=== PATIENT | male | born 1955 | race Asian ===

== ENCOUNTER 2016-08-10 11:29 | Emergency (ER) | payer OTHER ==
[~2016-08-10] VITALS: Ht 188 cm; Wt 77.1 kg
[~2016-08-10 11:29] MED LIST: AMBIEN5 MG PO; HYDR10TA47A PO; LISI10TA11 PO; TAMS0.4C PO
[2016-08-10 11:59] LABS: PLATELET COUNT 174 K/uL (142-355)
[2016-08-10 12:07] LABS: SODIUM 140 mmol/L (136-145)
[2016-08-10 13:19] VITALS: BP 161/98; TEMP 98
== END 2016-08-10 13:29 | disposition home or self-care (01) ==
LOC: ED 11:29
DX: R30.0 Dysuria (principal)
CPT/HCPCS: 36415; 80053; 81000; 85027; 96374; 99283; J1885

== ENCOUNTER 2016-09-16 08:58 | Emergency (ER) | payer OTHER ==
[~2016-09-16] VITALS: Ht 188 cm; Wt 76.7 kg
[2016-09-16 11:08] VITALS: BP 170/90; TEMP 98.1
== END 2016-09-16 11:09 | disposition home or self-care (01) ==
LOC: ED 08:58
DX: M25.552 Pain in left hip (principal); T84.021A Dislocation of internal left hip prosthesis, initial encounter
CPT/HCPCS: 96372; 99283; J1885; J2405

== ENCOUNTER 2016-12-08 22:19 | Emergency (ER) | payer OTHER ==
[~2016-12-08] VITALS: Ht 188 cm; Wt 73.5 kg
[2016-12-08 23:10] LABS: PLATELET COUNT 256 K/uL (142-355)
[2016-12-08 23:22] LABS: POTASSIUM 3.8 mmol/L (3.6-5.2); SODIUM 139 mmol/L (136-145)
[2016-12-08 23:45] VITALS: BP 176/99; TEMP 98.1
== END 2016-12-08 23:47 | disposition home or self-care (01) ==
LOC: ED 22:19
DX: K29.60 Other gastritis without bleeding (principal); B96.81 Helicobacter pylori [H. pylori] as the cause of diseases classified elsewhere; I10 Essential (primary) hypertension; F14.10 Cocaine abuse, uncomplicated
CPT/HCPCS: 80053; 80307; 81000; 82150; 83690; 85027; 86318; 99283; G0479

== ENCOUNTER 2017-03-13 10:43 | Emergency (ER) | payer OTHER ==
[~2017-03-13] VITALS: Ht 188 cm; Wt 77.1 kg
[2017-03-13 10:50] VITALS: TEMP 98.7
[2017-03-13 11:50] VITALS: BP 168/96
== END 2017-03-13 12:00 | disposition home or self-care (01) ==
LOC: ED 10:43
DX: S00.83XA Contusion of other part of head, initial encounter (principal); S70.02XA Contusion of left hip, initial encounter; W01.198A Fall on same level from slipping, tripping and stumbling with subsequent striking against other object, initial encounter; Y92.098 Other place in other non-institutional residence as the place of occurrence of the external cause
CPT/HCPCS: 99283; J1885

== ENCOUNTER 2017-05-01 05:52 | Emergency (ER) | payer OTHER ==
[~2017-05-01] VITALS: Ht 185.4 cm; Wt 77.1 kg
[2017-05-01 06:15] VITALS: BP 185/87; TEMP 98.2
[2017-05-01] MEDS ORDERED: CARV3.12 PO (06:32)
== END 2017-05-01 07:04 | disposition home or self-care (01) ==
LOC: ED 05:52
DX: R05 Cough (principal); R50.9 Fever, unspecified; J02.9 Acute pharyngitis, unspecified

== ENCOUNTER 2017-10-12 10:34 | Emergency (ER) | payer OTHER ==
[~2017-10-12] VITALS: Ht 188 cm; Wt 79.4 kg
[~2017-10-12 10:34] MED LIST changes: +CARV3.12 PO
[2017-10-12 11:11] LABS: PLATELET COUNT 206 K/uL (142-355)
[2017-10-12 11:19] LABS: POTASSIUM 3.7 mmol/L (3.6-5.2); SODIUM 140 mmol/L (136-145)
[2017-10-12 17:14] VITALS: BP 158/71; TEMP 98.1
== END 2017-10-12 17:17 | disposition other institution (70) ==
LOC: ED 10:34
DX: R45.851 Suicidal ideations (principal); F14.10 Cocaine abuse, uncomplicated; F13.10 Sedative, hypnotic or anxiolytic abuse, uncomplicated; R00.0 Tachycardia, unspecified
CPT/HCPCS: 36415; 80053; 80307; 80320; 80329; 81000; 82550; 82553; 84484; 85027; 93005; 99285

== ENCOUNTER 2018-02-01 10:20 | Emergency (ER) | payer OTHER ==
[~2018-02-01] VITALS: Ht 188 cm; Wt 77.1 kg
[2018-02-01] MEDS ORDERED: CARV25TA PO (10:43)
[2018-02-01 13:38] VITALS: BP 168/89; TEMP 98.1
== END 2018-02-01 13:18 | disposition home or self-care (01) ==
LOC: ED 10:20
PROC: 2W3LX1Z Immobilization of Right Lower Extremity using Splint (ICD-10-PCS; principal; 2018-02-01)
PROC: 0S9C3ZZ Drainage of Right Knee Joint, Percutaneous Approach (ICD-10-PCS; 2018-02-01)
DX: S83.8X1A Sprain of other specified parts of right knee, initial encounter (principal); M25.061 Hemarthrosis, right knee; W18.39XA Other fall on same level, initial encounter; Y92.89 Other specified places as the place of occurrence of the external cause
CPT/HCPCS: 96372; 99284; J1885; L1830

== ENCOUNTER 2018-02-04 14:21 | Emergency (ER) | payer OTHER ==
[~2018-02-04] VITALS: Ht 188 cm; Wt 77.1 kg
[~2018-02-04 14:21] MED LIST changes: +CARV25TA PO
[2018-02-04 14:25] VITALS: TEMP 97.7
[2018-02-04 16:21] VITALS: BP 151/98
== END 2018-02-04 16:20 | disposition home or self-care (01) ==
LOC: ED 14:21
PROC: 0S9C3ZZ Drainage of Right Knee Joint, Percutaneous Approach (ICD-10-PCS; principal; 2018-02-04)
DX: M25.461 Effusion, right knee (principal); M23.8X1 Other internal derangements of right knee
CPT/HCPCS: 99283

== ENCOUNTER 2018-04-15 14:41 | Emergency (ER) | payer OTHER ==
[~2018-04-15] VITALS: Ht 188 cm; Wt 79.4 kg
[2018-04-15 14:55] VITALS: BP 154/96; TEMP 99
[2018-04-15 15:16] LABS: PLATELET COUNT 145 K/uL (142-355)
[2018-04-15 15:26] LABS: POTASSIUM 4.2 mmol/L (3.6-5.2); SODIUM 143 mmol/L (136-145)
== END 2018-04-15 17:59 | disposition left against medical advice (07) ==
LOC: ED 14:41
PROVIDERS: Emergency Medicine
PROC: 0S9C3ZZ Drainage of Right Knee Joint, Percutaneous Approach (ICD-10-PCS; principal; 2018-04-15)
DX: M25.461 Effusion, right knee (principal); R07.89 Other chest pain; R00.0 Tachycardia, unspecified
CPT/HCPCS: 36415; 80053; 82550; 82553; 84484; 85027; 85379; 93005; 99284

== ENCOUNTER 2018-05-07 01:40 | Emergency (ER) | payer OTHER ==
[~2018-05-07] VITALS: Ht 188 cm; Wt 79.4 kg
[2018-05-07 01:40] VITALS: TEMP 98.6
[2018-05-07] MEDS ORDERED: ABACAVIR SULFAT1 TAB PO (01:58)
[2018-05-07] MEDS ORDERED: CARV25TA PO (01:58)
[2018-05-07 02:53] LABS: PLATELET COUNT 155 K/uL (142-355)
[2018-05-07 03:10] LABS: POTASSIUM 4.3 mmol/L (3.6-5.2)
[2018-05-07 07:30] VITALS: BP 147/77
== END 2018-05-07 12:20 | disposition other institution (70) ==
LOC: ED 01:40
PROVIDERS: Emergency Medicine
DX: T14.91XA Suicide attempt, initial encounter (principal); F28 Other psychotic disorder not due to a substance or known physiological condition
CPT/HCPCS: 36415; 80053; 80307; 80320; 80329; 81000; 85027; 93005; 99285

== ENCOUNTER 2018-08-20 09:19 | Emergency (ER) | payer OTHER ==
[~2018-08-20] VITALS: Ht 188 cm; Wt 82.1 kg
[~2018-08-20 09:19] MED LIST changes: +ABACAVIR SULFAT1 TAB PO
[2018-08-20 09:27] VITALS: TEMP 97.7
[2018-08-20] MEDS ORDERED: CARV12.5 PO (09:54)
[2018-08-20] MEDS ORDERED: TAMSULOSIN0.4 MG PO (09:54)
[2018-08-20] MEDS ORDERED: QUETIAPINE100 MG PO (09:55)
[2018-08-20] MEDS ORDERED: ALPR0.5T24 PO (09:56)
[2018-08-20 10:02] LABS: PLATELET COUNT 143 K/uL (142-355)
[2018-08-20 10:15] LABS: POTASSIUM 3.7 mmol/L (3.6-5.2); SODIUM 142 mmol/L (136-145)
[2018-08-20 13:05] VITALS: BP 125/73
== END 2018-08-20 13:14 | disposition home or self-care (01) ==
LOC: ED 09:19
PROVIDERS: Family Medicine
DX: R07.89 Other chest pain (principal); J32.8 Other chronic sinusitis; I10 Essential (primary) hypertension; R42 Dizziness and giddiness
CPT/HCPCS: 36415; 80053; 82550; 84484; 85027; 85379; 93005; 96374; 99284; J0360

== ENCOUNTER 2019-01-28 13:16 | Observation (INO) | payer OTHER ==
[~2019-01-28] VITALS: Ht 188 cm; Wt 84.1 kg
[~2019-01-28 13:16] MED LIST changes: +ALPR0.5T24 PO; +CARV12.5 PO; +QUETIAPINE100 MG PO; +TAMSULOSIN0.4 MG PO
[2019-01-28 13:26] VITALS: BP 191/115; TEMP 97.5
[2019-01-28 13:40] LABS: PLATELET COUNT 144 K/uL (142-355)
[2019-01-28 13:52] LABS: POTASSIUM 4.3 mmol/L (3.6-5.2); SODIUM 138 mmol/L (136-145)
[2019-01-28 13:55] LABS: PARTIAL THROMBOPLASTIN TIME 26.7 SECONDS (24.5-33.6)
[2019-01-28 14:54] VITALS: BP 169/95
[2019-01-28 15:52] VITALS: BP 178/95; TEMP 98.7; Ht 188 cm; Wt 84.1 kg
[2019-01-28 20:00] VITALS: BP 183/93; TEMP 98.2
[2019-01-29] VITALS: BP 116/59; TEMP 98.2
[2019-01-29 04:00] VITALS: BP 137/76; TEMP 97.9
[2019-01-29 08:30] VITALS: BP 151/92; TEMP 98.4
[2019-01-29 12:00] VITALS: BP 126/90; TEMP 98.5
== END 2019-01-29 15:50 | disposition home or self-care (01) ==
LOC: ED 13:16 → MED/SURG 14:50
PROVIDERS: Student in an Organized Health Care Education/Training Program; ADMIT Internal Medicine
DX: R07.89 Other chest pain (principal); I10 Essential (primary) hypertension; R06.02 Shortness of breath; N40.0 Benign prostatic hyperplasia without lower urinary tract symptoms; Z79.899 Other long term (current) drug therapy
CPT/HCPCS: 36415; 80053; 80307; 81000; 82550; 82553; 83874; 84439; 84443; 84484; 85027; 85610; 85730; 93005; 96374; 96375; 99220; 99284; G0378; J0360; J2270; J2550

== ENCOUNTER 2019-03-23 08:52 | Outpatient (CLI) | payer OTHER | END 2019-03-23 23:59 | LOC: CT 08:52 | DX: R20.2 Paresthesia of skin (principal) ==

== ENCOUNTER 2019-04-29 09:32 | Emergency (ER) | payer OTHER ==
[~2019-04-29] VITALS: Ht 188 cm; Wt 83.9 kg
[2019-04-29 09:42] VITALS: TEMP 98
[2019-04-29] MEDS ORDERED: HYDR10TA47 PO (09:55)
[2019-04-29 10:33] VITALS: BP 155/91
== END 2019-04-29 10:33 | disposition home or self-care (01) ==
LOC: ED 09:32
PROC: 0S9C0ZZ Drainage of Right Knee Joint, Open Approach (ICD-10-PCS; principal; 2019-04-29)
DX: M25.461 Effusion, right knee (principal)
CPT/HCPCS: 87070; 87205; 99283

== ENCOUNTER 2019-05-06 05:12 | Emergency (ER) | payer OTHER ==
[~2019-05-06] VITALS: Ht 188 cm; Wt 83.9 kg
[~2019-05-06 05:12] MED LIST changes: +HYDR10TA47 PO
[2019-05-06 05:27] VITALS: TEMP 99
[2019-05-06 05:44] LABS: PLATELET COUNT 156 K/uL (142-355)
[2019-05-06 05:54] LABS: POTASSIUM 3.8 mmol/L (3.6-5.2)
[2019-05-06 10:00] VITALS: BP 142/93
== END 2019-05-06 10:00 | disposition other institution (70) ==
LOC: ED 05:12
PROVIDERS: Emergency Medicine
DX: K85.80 Other acute pancreatitis without necrosis or infection (principal)
CPT/HCPCS: 80053; 80307; 80320; 80329; 81000; 82550; 82553; 84484; 85027; 93005; 99285

== ENCOUNTER 2019-06-19 10:52 | Emergency (ER) | payer OTHER ==
[~2019-06-19] VITALS: Ht 188 cm; Wt 81.6 kg
[2019-06-19 11:36] LABS: PLATELET COUNT 194 K/uL (142-355)
[2019-06-19 11:43] LABS: POTASSIUM 4.8 mmol/L (3.6-5.2)
[2019-06-19 15:25] VITALS: BP 160/95; TEMP 98.7
== END 2019-06-19 15:27 | disposition other institution (70) ==
LOC: ED 10:52
PROVIDERS: Emergency Medicine
DX: R45.851 Suicidal ideations (principal); F32.89 Other specified depressive episodes; F14.10 Cocaine abuse, uncomplicated; R00.0 Tachycardia, unspecified
CPT/HCPCS: 36415; 80053; 80307; 80320; 80329; 81000; 85027; 93005; 99285

== ENCOUNTER 2019-09-29 03:35 | Emergency (ER) | payer OTHER ==
[~2019-09-29] VITALS: Ht 188 cm; Wt 68.0 kg
[2019-09-29 04:41] LABS: POTASSIUM 3.9 mmol/L (3.6-5.2)
[2019-09-29 04:48] LABS: PLATELET COUNT 120 K/uL (142-355)
[2019-09-29 07:30] VITALS: TEMP 98
[2019-09-29] MEDS ORDERED: TRAZ50TA36 PO (11:07)
[2019-09-29 12:45] VITALS: BP 154/81
== END 2019-09-29 12:45 | disposition other institution (70) ==
LOC: ED 03:35
PROVIDERS: Student in an Organized Health Care Education/Training Program
DX: R45.851 Suicidal ideations (principal); F19.10 Other psychoactive substance abuse, uncomplicated
CPT/HCPCS: 36415; 80053; 80307; 80320; 80329; 81000; 85027; 93005; 99285

== ENCOUNTER 2019-12-04 09:42 | Emergency (ER) | payer OTHER ==
[~2019-12-04] VITALS: Ht 188 cm; Wt 81.6 kg
[~2019-12-04 09:42] MED LIST changes: +TRAZ50TA36 PO
[2019-12-04 10:20] VITALS: TEMP 97.7
[2019-12-04 10:39] LABS: PLATELET COUNT 172 K/uL (142-355)
[2019-12-04 10:45] LABS: POTASSIUM 4.4 mmol/L (3.6-5.2); SODIUM 141 mmol/L (136-145)
[2019-12-04] MEDS ORDERED: TRICOR145 M1 PO (11:36)
[2019-12-04 13:30] VITALS: BP 142/98
== END 2019-12-04 14:15 | disposition other institution (70) ==
LOC: ED 09:42
PROVIDERS: Emergency Medicine
DX: R45.851 Suicidal ideations (principal); T14.91XA Suicide attempt, initial encounter; I10 Essential (primary) hypertension; Y92.89 Other specified places as the place of occurrence of the external cause
CPT/HCPCS: 80053; 80307; 80320; 80329; 81000; 85027; 93005; 99285

== ENCOUNTER 2020-01-06 10:09 | Emergency (ER) | payer OTHER ==
[~2020-01-06] VITALS: Ht 188 cm; Wt 81.6 kg
[~2020-01-06 10:09] MED LIST changes: +TRICOR145 M1 PO
[2020-01-06 10:35] LABS: PLATELET COUNT 199 K/uL (142-355)
[2020-01-06 10:45] LABS: POTASSIUM 3.8 mmol/L (3.6-5.2)
[2020-01-06 13:20] VITALS: BP 110/71; TEMP 98
== END 2020-01-06 13:20 | disposition other institution (70) ==
LOC: ED 10:09
PROVIDERS: Hospitalist
DX: R45.851 Suicidal ideations (principal); F32.89 Other specified depressive episodes; F14.10 Cocaine abuse, uncomplicated
CPT/HCPCS: 80053; 80307; 80320; 80329; 81000; 85027; 93005; 99285

== ENCOUNTER 2023-05-11 09:44 | Emergency (ER) | payer OTHER ==
[~2023-05-11] VITALS: Ht 188 cm; Wt 83.9 kg
[2023-05-11 09:44] VITALS: TEMP 98.1
[2023-05-11 11:00] LABS: PLATELET COUNT 213 K/uL (142-355)
[2023-05-11 11:19] LABS: POTASSIUM 3.9 mmol/L (3.6-5.2); SODIUM 139 mmol/L (136-145)
[2023-05-11 11:30] VITALS: BP 125/75
[2023-05-11] MEDS ORDERED: ALPR0.5T24 PO (15:27)
[2023-05-11] MEDS ORDERED: TRAZ50TA36 PO (15:28)
[2023-05-11] MEDS ORDERED: TRICOR145 M1 PO (15:31)
[2023-05-21] MEDS ORDERED: ESCI10TA PO (10:35)
== END 2023-05-11 13:48 | disposition other institution (70) ==
LOC: ED 09:44
PROVIDERS: Family Medicine
DX: R45.851 Suicidal ideations (principal); F14.10 Cocaine abuse, uncomplicated; F32.A Depression, unspecified; I10 Essential (primary) hypertension; F41.9 Anxiety disorder, unspecified; Z20.822 Contact with and (suspected) exposure to COVID-19
CPT/HCPCS: 80053; 80143; 80179; 80307; 80320; 81002; 84484; 85027; 87635; 93005; 99283; U0003